=== PATIENT | female | born 1965 | race Caucasian/White ===

== ENCOUNTER 2018-12-17 08:13 | Emergency (ER) | payer BC ==
[2018-12-17 08:28] VITALS: BP 119/71
--- NOTE | 2018-12-17 08:59 | UC ---
Throat Pain/Nasal Aleksandr HPI - HPI Summary HPI Summary: Pt presents to reporting episode of chest tightness, sub sternal this morning. No radiation. No n./v. No sob. No diaphoresis. Pt states was drving when started. Pt with similar episode approx 5 days ago. self limited. No h/o similar no complaints at time of eval. No cardiac hx. no cough. no congestion no htn. hld, dm. no family hx. no tobacco. no cardiac eval Pt drove to and from [place] yesterday. No calf pain, edema no clotting d/o pt's medications reviewed - History of Current Complaint Chief Complaint: UCRespiratory Stated Complaint: CONGESTION Time Seen by Provider: 12/17/18 08:53 Hx Obtained From: Patient ?: No Pain Intensity: 4 - Allergies/Home Medications Allergies/Adverse Reactions: Allergies Allergy/AdvReac Type Severity Reaction Status Date / Time No Known Allergies Allergy Verified 12/17/18 08:28 Home Medications: Home Medications Cholecalciferol (Vitamin D3) [ Vitamin D3] 1,000 unit PO DAILY 12/17/18 [ History Confirmed 12/17/18] Cyanocobalamin (Vitamin B-12) [Vitamin B-12] 1,000 mcg PO DAILY 12/17/18 [ History Confirmed 12/17/18] PMH/Surg Hx/FS Hx/Imm Hx Previously Healthy: Yes - Surgical History Surgical History: Yes Surgery Procedure, Year, and Place: WISDOM TEETH - Family History Known Family History: Negative: Cardiac Disease, Hypertension, Diabetes - Social History Occupation: Employed Full-time Lives: With Family Alcohol Use: Rare Substance Use Type: None Smoking Status (MU): Never Smoked Tobacco Review of Systems All Other Systems Reviewed And Are Negative: Yes Constitutional: Positive: Negative Skin: Positive: Negative Cardiovascular: Positive: Chest Pain - pressure - resolved Is Patient Immunocompromised?: No Physical Exam - Summary Physical Exam Summary: Vital Signs Reviewed: Yes A+Ox3, no distress Eyes: Conjunctiva Clear, ANDREW. EOM intact and full ENT: Hearing grossly normal TM x 2 clear, mmoist, uvula midline, no exudate, no erythema Neck: Positive: Supple Respiratory: Positive: No respiratory distress, No accessory muscle use + CTA throughout no w/r Cardiovascular: RRR nl s1, s2 no m/r CBT <2 sec not reproducible no bruits abd soft + BS nt/nd no guarding, no distension Musculoskeletal Exam: HERNANDEZ x 4 without difficulty Strength Intact, ROM Intact Neurological: Positive: Alert, + sensation throughout Psychological: Positive: Normal Response To Family Skin: Positive: no rash, no ecchymosis Vital Signs: Initial Vital Signs Temp 97.6 F 12/17/18 08:22 Pulse 82 12/17/18 08:22 Resp 18 12/17/18 08:22 BP 119/71 12/17/18 08:22 Pulse Ox 100 12/17/18 08:22 Diagnostics - EKG Cardiac Rate: NL - Hr 72 Cardiac Rhythm: Sinus: Normal Ectopy: None ST Segment: Normal Throat Pain/Nasal Course/Dx - Course Course Of Treatment: Pt with 2 episodes of chest pressure, heaviness - substernal. no pain at present not reproducible no associated sx no riskf actors. VSS. Exam non concerning. d/w pt concern for cardiac origin. will give ASA - pt to ED by POV - no current symptoms. pt in agreement with plan. report to Dr. Yan - Differential Dx/Diagnosis Provider Diagnosis: Chest pain Discharge - Sign-Out/Discharge Documenting (check all that apply): Patient Departure All imaging exams completed and their final reports reviewed: No Studies - Discharge Plan Condition: Stable Disposition: HOME-RECOMMEND TO ED Patient Education Materials: Chest Pain (ED) Referrals: Karlene You MD [Primary Care Provider] - Additional Instructions: The doctor that evaluated you today thinks that you need additional testing that can be completed the emergency department. It is recommended that you go directly to emergency department for further evaluation. This evaluation may include blood work or imaging. This testing will be directed and decided by the provider that evaluate you at the emergency department. If pain becomes worse, you feel lightheaded, you have uncontrolled vomiting, or you have any other concerns while you are being driven to emergency department as recommended to pullover and contact 911. - Billing Disposition and Condition Condition: STABLE Disposition: Home-Recommend to ED
[2018-12-17] MEDS ORDERED: Aspirin 81 mg CHEW TAB* 81 MG TAB.CHEW PO ONE (09:11)
== END 2018-12-17 09:22 | disposition home health service (06) ==
LOC: UCEAST 08:13
DX: R07.89 Other chest pain (principal)
CPT/HCPCS: 93005; 99212; A9270-GY; G0463

== ENCOUNTER → 2018-12-17 09:42 | Emergency (ER) | payer BC ==
[2018-12-17 10:19] LABS: ABS Basophils 0 10^3/ul (0-0.2); ABS Eosinophils 0.1 10^3/ul (0-0.6); ABS Lymphocytes 1.5 10^3/ul (1.0-4.8); ABS Monocytes 0.3 10^3/ul (0-0.8); ABS Neutrophils 2.2 10^3/ul (1.5-7.7); ABS Nucleated RBC 0 10^3/ul; Eosinophil % 1.9 %; Hematocrit 41 % (35-47); Hemoglobin 13.5 g/dl (12.0-16.0); Lymphocyte % 36.1 %; Mean Corpuscular HGB Conc 33 g/dl (31-36); Mean Corpuscular Hemoglobin 30 pg (27-31); Mean Corpuscular Volume 91 fL (80-97); Mean Platelet Volume 8.7 fL (7.4-10.4); Nucleated Red Blood Cells % 0.1; Platelet Count 169 10^3/ul (150-450); Red Blood Count 4.47 10^6/ul (4.00-5.40); Red Cell Distribution Width 13 % (10.5-15); White Blood Count 4.1 10^3/ul (3.5-10.8)
[2018-12-17 10:44] LABS: Albumin 4.1 g/dL (3.2-5.2); Albumin/Globulin Ratio 1.5 (1-3); BUN/Creatinine Ratio 14.1 (8-20); Calcium 9.3 mg/dL (8.6-10.3); EGFR African American 76.7 (>60); EGFR Non-African American 63.4 (>60); Globulin 2.8 g/dL (2-4); Potassium 4.5 mmol/L (3.5-5.0); Total Bilirubin 0.4 mg/dL (0.2-1.0); Total Protein 6.9 g/dL (6.4-8.9)
--- NOTE | 2018-12-17 10:58 | ED ---
HPI Chest Pain - HPI Summary HPI Summary: Pt is a 53 y/o female sent from the who presents to the ED c/o chest pressure. The pain starting this morning while she was driving, and is described as pressure, squeezing, and tightness. The pain is rated a 1/10 in severity, is constant, and is non-radiating. Pt also c/o nausea, but denies any SOB, leg pain, or LE edema. Yesterday she drove a total of 12 hours. Pt denies any CP with exertion. She was given ASA at the and had a normal EKG. Pt denies smoking. Her father from [place]. - History of Current Complaint Chief Complaint: EDChestPainROMI Time Seen by Provider: 12/17/18 10:02 Hx Obtained From: Patient, Family/Hedis Registered Nurse Rn - Family Onset/Duration: Started Hours Ago - This morning, Still Present Timing: Constant Current Severity: Mild Pain Intensity: 1 Pain Scale Used: 0-10 Numeric Chest Pain Location: Diffuse Chest Pain Radiates: No Character: Pressure/Squeezing, Tightness Aggravating Factor(s): Nothing Alleviating Factor(s): Nothing Associated Signs and Symptoms: Positive: Chest Pain, Nausea. Negative: Shortness of Breath, Calf Pain/Swelling - Allergy/Home Medications Allergies/Adverse Reactions: Allergies Allergy/AdvReac Type Severity Reaction Status Date / Time No Known Allergies Allergy Verified 12/17/18 08:28 Home Medications: Home Medications Ubidecarenone [Co Q-10] 200 mg PO DAILY 12/17/18 [History Confirmed 12/17/18] PMH/Surg Hx/FS Hx/Imm Hx Endocrine/Hematology History: Denies: Hx Diabetes, Hx Thyroid Disease Cardiovascular History: Denies: Hx Hypertension Respiratory History: Reports: Hx Asthma - in the past Denies: Hx Chronic Obstructive Pulmonary Disease (COPD) GI History: Denies: Hx Ulcer History: Denies: Hx Dialysis, Hx Renal Disease - Cancer History Hx Chemotherapy: No Hx Radiation Therapy: No - Surgical History Surgery Procedure, Year, and Place: WISDOM TEETH Infectious Disease History: No Infectious Disease History: Denies: Hx Clostridium Difficile, Hx Hepatitis, Hx Human Immunodeficiency Virus (HIV), Hx of Known/Suspected MRSA, Hx Shingles, Hx Tuberculosis, Traveled Outside the [place] in Last 30 Days - Family History Known Family History: Positive: Cardiac Disease - LBBB, father of [place] - Social History Alcohol Use: Rare Hx Substance Use: No Substance Use Type: Reports: None Hx Tobacco Use: No Smoking Status (MU): Never Smoked Tobacco Review of Systems Positive: Chest Pain - pressure Negative: Shortness Of Breath Positive: Nausea Negative: Myalgia - leg, Edema - LE All Other Systems Reviewed And Are Negative: Yes Physical Exam - Summary Physical Exam Summary: GENERAL: Patient is a well-developed and nourished F who is lying comfortable in the stretcher. Patient is not in any acute respiratory distress. HEAD AND FACE: Normocephalic EYES: PERRLA, EOMI x 2. EARS: Hearing grossly intact. MOUTH: Oropharynx within normal limits. NECK: Supple, trachea is midline, no adenopathy, no JVD, no carotid bruit. CHEST: Symmetric, no tenderness at palpation LUNGS: Clear to auscultation bilaterally. No wheezing or crackles. CVS: Regular rate and rhythm, S1 and S2 present, no murmurs or gallops appreciated. ABDOMEN: Soft, non-tender. Bowel sounds are normal. No abdominal abnormal pulsations. EXTREMITIES: Full ROM in all major joints, no edema, no cyanosis or clubbing. NEURO: Alert and oriented x 3. No acute neurological deficits. Speech is normal and follows commands. SKIN: Dry and warm Triage Information Reviewed: Yes Vital Signs On Initial Exam: Initial Vitals Temp Pulse Resp BP Pulse Ox 97.7 F 68 18 142/53 97 12/17/18 09:48 12/17/18 09:48 12/17/18 09:48 12/17/18 09:48 12/17/18 09:48 Vital Signs Reviewed: Yes Diagnostics - Vital Signs Vital Signs Temp Pulse Resp BP Pulse Ox 12/17/18 10:00 70 96 12/17/18 09:57 68 118/83 97 12/17/18 09:48 97.7 F 68 18 142/53 97 - Laboratory Lab Results: Lab Results 12/17/18 12/17/18 12/17/18 Range/Units 10:08 10:08 10:08 WBC 4.1 (3.5-10.8) 10^3/ul RBC 4.47 (4.00-5.40) 10^6/ul Hgb 13.5 (12.0-16.0) g/dl Hct 41 (35-47) % MCV 91 (80-97) fL MCH 30 (27-31) pg MCHC 33 (31-36) g/dl RDW 13 (10.5-15) % Plt Count 169 (150-450) 10^3/ul MPV 8.7 (7.4-10.4) fL Neut % (Auto) 52.8 % Lymph % (Auto) 36.1 % Dewey % (Auto) 8.5 % Eos % (Auto) 1.9 % Baso % (Auto) 0.7 % Absolute Neuts (auto) 2.2 (1.5-7.7) 10^3/ul Absolute Lymphs (auto) 1.5 (1.0-4.8) 10^3/ul Absolute Monos (auto) 0.3 (0-0.8) 10^3/ul Absolute Eos (auto) 0.1 (0-0.6) 10^3/ul Absolute Basos (auto) 0 (0-0.2) 10^3/ul Absolute Nucleated RBC 0 10^3/ul Nucleated RBC % 0.1 Sodium 137 (135-145) mmol/L Potassium 4.5 (3.5-5.0) mmol/L Chloride 104 (101-111) mmol/L Carbon Dioxide 28 (22-32) mmol/L Anion Gap 5 (2-11) mmol/L BUN 13 (6-24) mg/dL Creatinine 0.92 (0.51-0.95) mg/dL Est GFR ( Amer) 76.7 (>60) Est GFR (Non-Af Amer) 63.4 (>60) BUN/Creatinine Ratio 14.1 (8-20) Glucose 99 (70-100) mg/dL Lactic Acid 0.7 (0.5-2.0) mmol/L Calcium 9.3 (8.6-10.3) mg/dL Total Bilirubin 0.40 (0.2-1.0) mg/dL AST 18 (13-39) U/L ALT 16 (7-52) U/L Alkaline Phosphatase 86 (34-104) U/L Troponin I 0.00 (<0.04) ng/mL B-Natriuretic Peptide (<=100) pg/mL Total Protein 6.9 (6.4-8.9) g/dL Albumin 4.1 (3.2-5.2) g/dL Globulin 2.8 (2-4) g/dL Albumin/Globulin Ratio 1.5 (1-3) 12/17/18 Range/Units 10:08 WBC (3.5-10.8) 10^3/ul RBC (4.00-5.40) 10^6/ul Hgb (12.0-16.0) g/dl Hct (35-47) % MCV (80-97) fL MCH (27-31) pg MCHC (31-36) g/dl RDW (10.5-15) % Plt Count (150-450) 10^3/ul MPV (7.4-10.4) fL Neut % (Auto) % Lymph % (Auto) % Dewey % (Auto) % Eos % (Auto) % Baso % (Auto) % Absolute Neuts (auto) (1.5-7.7) 10^3/ul Absolute Lymphs (auto) (1.0-4.8) 10^3/ul Absolute Monos (auto) (0-0.8) 10^3/ul Absolute Eos (auto) (0-0.6) 10^3/ul Absolute Basos (auto) (0-0.2) 10^3/ul Absolute Nucleated RBC 10^3/ul Nucleated RBC % Sodium (135-145) mmol/L Potassium (3.5-5.0) mmol/L Chloride (101-111) mmol/L Carbon Dioxide (22-32) mmol/L Anion Gap (2-11) mmol/L BUN (6-24) mg/dL Creatinine (0.51-0.95) mg/dL Est GFR ( Amer) (>60) Est GFR (Non-Af Amer) (>60) BUN/Creatinine Ratio (8-20) Glucose (70-100) mg/dL Lactic Acid (0.5-2.0) mmol/L Calcium (8.6-10.3) mg/dL Total Bilirubin (0.2-1.0) mg/dL AST (13-39) U/L ALT (7-52) U/L Alkaline Phosphatase (34-104) U/L Troponin I (<0.04) ng/mL B-Natriuretic Peptide 15 (<=100) pg/mL Total Protein (6.4-8.9) g/dL Albumin (3.2-5.2) g/dL Globulin (2-4) g/dL Albumin/Globulin Ratio (1-3) Result Diagrams: 12/17/18 10:08 12/17/18 10:08 Lab Statement: Any lab studies that have been ordered have been reviewed, and results considered in the medical decision making process. - Radiology CXR Radiology Interpretation Completed By: Radiologist Summary of Radiographic Findings: Elevated lung volumes suggest potential obstructive lung disease. No acute cardiopulmonary process evident. ED physician reviewed radiology report. - EKG 9:56 Cardiac Rate: NL - 64 bpm EKG Rhythm: Sinus Rhythm Summary of EKG Findings: Nl axis. No ischemic changes. Re-Evaluation - Re-Evaluation First Eval Re-Evaluation Time: 11:58 Change: Unchanged Comment: Pt feels fine. Will organize for a stress test. Chest Pain Course/Dx - Course Course Of Treatment: Pt is a 53 y/o female sent from the who presents to the ED c/o chest pressure. A CXR was negative. An EKG revealed no ischemic changes. Pt will be discharged with a final dx of chest pain, and is instructed to follow up with outpatient cardiology for a stress test. I discussed results with patient and she reports feeling better. She is hemodynamically stable and safe for discharge. Strict return precautions given and she will otherwise follow up with her PCP. - Diagnoses Provider Diagnoses: Chest pain - Provider Notifications Discussed Care Of Patient With: Ernie Rowe Time Discussed With Above Provider: 12:00 Instructed by Provider To: Other - Have the pt set up for an outpatient stress test. Discharge - Sign-Out/Discharge Documenting (check all that apply): Patient Departure - Discharge Patient Received Moderate/Deep Sedation with Procedure: No - Discharge Plan Condition: Stable Disposition: HOME Patient Education Materials: Chest Pain (ED) Referrals: Wallace Hsu MD [Medical Doctor] - (1-3 days) Karlene You MD [Primary Care Provider] - (1-3 days) Additional Instructions: Follow up with your primary care physician in 1-3 days. Follow up with cardiology for a cardiac stress test. RETURN TO THE EMERGENCY DEPARTMENT FOR CHANGING OR WORSENING SYMPTOMS. - Billing Disposition and Condition Condition: STABLE Disposition: Home - Attestation Statements Document Initiated by Scribe: Yes Documenting Scribe: Nyla Samson Provider For Whom Scribe is Documenting (Include Credential): Yolanda Vann MD Scribe Attestation: INyla, scribed for Yolanda Vann MD on 12/17/18 at 1840. Scribe Documentation Reviewed: Yes Provider Attestation: The documentation as recorded by the scribeNyla accurately reflects the service I personally performed and the decisions made by me, Yolanda Vann MD Status of Scribe Document: Viewed
[2018-12-17 11:09] LABS: Activated Partial Thrombo Time 27.5 seconds (26.0-36.3); INR 0.91 (0.77-1.02)
[2018-12-17 12:18] LABS: Urine Appearance Clear; Urine Bilirubin Negative (Negative); Urine Blood Negative (Negative); Urine Color Straw; Urine Glucose Negative (Negative); Urine Ketones Negative (Negative); Urine Nitrite Negative (Negative); Urine Protein Negative (Negative); Urine Specific Gravity 1.003 (1.010-1.030); Urine Urobilinogen Negative (Negative)
[2018-12-17 14:17] VITALS: BP 96/73
== END | disposition home or self-care (01) ==
LOC: ED 09:42
DX: R07.89 Other chest pain (principal); R11.0 Nausea; Z82.49 Family history of ischemic heart disease and other diseases of the circulatory system
CPT/HCPCS: 36415; 71045; 80053; 81003; 83605; 83880; 84484; 85025; 85379; 85610; 85730; 93005; 99283